=== PATIENT | male | born 1970 | race Caucasian/White ===

== ENCOUNTER 2019-06-02 16:42 | Emergency (ER) | payer MEDICAID ==
[~2019-06-02] VITALS: Ht 177.8 cm; Wt 118.4 kg
[2019-06-02 16:48] VITALS: BP 151/85
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
--- NOTE | 2019-06-02 17:19 | NUR ---
SEEN AND EXAMINED BY COURTNEY MENDEZ
--- NOTE | 2019-06-02 18:36 | NUR ---
Patient discharged to home in stable condition. Written and verbal after care instructions given. Patient verbalizes understanding of instruction.
== END 2019-06-02 18:39 ==
LOC: ER 16:51
DX: F10.129 Alcohol abuse with intoxication, unspecified (principal); F12.10 Cannabis abuse, uncomplicated; F10.10 Alcohol abuse, uncomplicated; Y90.9 Presence of alcohol in blood, level not specified; V49.49XA Driver injured in collision with other motor vehicles in traffic accident, initial encounter; Y93.89 Activity, other specified; Y92.410 Unspecified street and highway as the place of occurrence of the external cause; Y99.8 Other external cause status